=== PATIENT | female | born 1990 | race American Indian/Alaskan Native ===

== ENCOUNTER 2016-08-12 12:34 | Emergency (ER) | payer OTHER ==
[2016-08-12] MEDS ORDERED: VALIUM IM ONE (13:24)
[2016-08-12] MEDS ORDERED: BOOSTRIX IM ONE (13:24)
[2016-08-12] MEDS ORDERED: NACL 0.9% IR ONE (13:24)
[2016-08-12] MEDS ORDERED: ZOFRAN ODT PO ONE (13:24)
[2016-08-12] MEDS ORDERED: TORADOL IM ONE (13:25)
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
[2016-08-12] MEDS ORDERED: XYLOCAINE 1%/ EPI 1:100,000 INFILTRATI NR (14:00)
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
[2016-08-12] MEDS ORDERED: TRIPLE ANTIBIOTIC TP ONE (16:43)
[2016-08-12 17:11] VITALS: BP 116/82
== END 2016-08-12 17:13 | disposition home or self-care (01) ==
LOC: ED 12:34
DX: S16.1XXA Strain of muscle, fascia and tendon at neck level, initial encounter (principal); S02.2XXA Fracture of nasal bones, initial encounter for closed fracture; S01.21XA Laceration without foreign body of nose, initial encounter; S01.81XA Laceration without foreign body of other part of head, initial encounter; M25.512 Pain in left shoulder; V49.49XA Driver injured in collision with other motor vehicles in traffic accident, initial encounter; Y93.9 Activity, unspecified; Y92.9 Unspecified place or not applicable; Y99.9 Unspecified external cause status
CPT/HCPCS: 12013; 70450; 70486; 72125; 73030; 90471; 90715; 96372; 99284; J1885; J3360; A6250; Q0162

== ENCOUNTER 2016-08-18 18:58 | Emergency (ER) | payer OTHER ==
[2016-08-18 19:09] VITALS: BP 123/80
== END 2016-08-19 05:44 | disposition left against medical advice (07) ==
LOC: ED 18:58
DX: Z48.02 Encounter for removal of sutures (principal); Z53.21 Procedure and treatment not carried out due to patient leaving prior to being seen by health care provider